=== PATIENT | male | born 1995 | race Caucasian/White ===

== ENCOUNTER 2019-10-18 06:34 | Observation (INO) | payer SELFPAY ==
[2019-10-18] VITALS (13 sets, daily range): BP systolic 123–139; BP diastolic 65–88; PULSE 67–110; RESP 15–18; TEMP 36.4–36.9; O2SAT 96–100; BMI 28.3
--- NOTE | 2019-10-18 | SCC_ITS ---
Procedure Done: Cystoscopy, RIGHT: Retrograde ureteropyelogram, ureteroscopy, stent 44.9 seconds of fluoroscopic guidance, for a cumulative dose of 4.93 mGy, was provided to Dr. Malhotra by the radiology department. C-arm images of the abdomen/pelvis were saved for the patient's permanent record. [facility]
--- NOTE | 2019-10-18 06:29 | W.ED.ABDPA2 ---
HPI - Abdominal Pain General: Chief Complaint: Abdominal Pain Stated Complaint: Right Flank Pain History of Present Illness: HPI narrative: 24-year-old male presents to the emergency room by transfer. He is here for screening prior to admission he was accepted as it direct admission from Dr. Malhotra for pyelonephritis. CT with labs that were concurrent. Patient denies any recent illness prior to this urinary symptoms and flank pain denies any respiratory symptoms or fever. MD elicited complaint: flank pain Onset (ago): hour(s) Pain Consistency: constant Location: R flank Severity: moderate Quality: stabbing Radiation: suprapubic Migration to: no migration Exacerbating factors: nothing Relieving factors: nothing Associated Symptoms: Reports GI cramping and nausea; Denies change in bowel habits, change in stool character, chills, coffee ground emesis, constipation, diarrhea, dyspepsia, dysuria, fever(s), heartburn, hematochezia, hematuria, hematemesis, fecal incontinence, loose stools, melena, syncope and vomiting Review of Systems Const: Denies: fever(s) or chills ENMT: Denies: throat pain, ear or mastoid pain, nasal discharge or nasal congestion Card: Denies: syncope Resp: Denies: dyspnea, productive cough or non-productive cough GI: Reports: nausea and GI cramping; Denies: vomiting, hematemesis, coffee ground emesis, heartburn, diarrhea, constipation, fecal incontinence, change in bowel habits, change in stool character, hematochezia or melena : Denies: dysuria or hematuria Skin/Breast: Denies: rash or pruritus PFSH ED PFSH: Social History (Updated 10/18/19 @ 06:32 by Marco Huang DO) Smoking and tobacco status: never smoked Alcohol intake: current Alcohol intake frequency: 0-2 Drinks per Day Physical Exam Const: COMMON NORMALS: no acute distress GENERAL APPEARANCE: cooperative and comfortable ORIENTATION/CONSCIOUSNESS: Yes awake, Yes oriented to person, Yes oriented to place and Yes oriented to time HENMT: COMMON NORMALS: normocephalic, atraumatic, hearing grossly normal bilaterally, external ears normal, EAC's normal, TM's normal bilaterally, Normal nasal mucous membranes and turbinates present, moist oral mucous membranes and oropharynx normal HEAD & SCALP: normocephalic and atraumatic NOSE: Normal nasal mucous membranes and turbinates present EXTERNAL EAR: Yes external ears normal EXTERNAL AUDITORY CANAL: EAC's normal TYMPANIC MEMBRANE: TM's normal bilaterally Eye: COMMON NORMALS: Equal, round and reactive pupils present, EOMs intact bilaterally, conjunctivae normal and no scleral icterus CONJUNCTIVA: Yes conjunctivae normal PUPIL: Yes Equal, round and reactive pupils present Neck/C-Spine: COMMON NORMALS: full ROM, no lymphadenopathy, supple and no JVD Lymph: LYMPHATIC: no lymphadenopathy noted and no lymphedema noted Resp: COMMON NORMALS: normal respiratory effort, No retractions, No use of accessory muscles and clear to auscultation bilaterally AUSCULTATION: clear to auscultation bilaterally Cardio: COMMON NORMALS: no JVD, regular rate, regular rhythm and No murmurs present (Cardio) RATE: regular rate RHYTHM: regular rhythm GI: COMMON NORMALS: Soft to palpation and No hepatosplenomegaly present AUSCULTATION: Yes normoactive bowel sounds PALPATION: Yes Soft to palpation, No Tenderness to palpation present (GI), No Guarding due to palpation present (GI) and Yes No hepatosplenomegaly present Extremity: COMMON NORMALS: normal to inspection, capillary refill normal, no clubbing, cyanosis or edema, no calf tenderness and no pedal edema Neuro: SENSORIUM/ORIENTATION: Yes oriented to person, Yes oriented to place and Yes oriented to time Skin: COMMON NORMALS: no rashes or lesions noted GENERAL SKIN EXAM: no rashes or lesions noted Course Vital Signs: Vital signs: Vital Signs Temperature 98.3 F 10/18/19 06:13 Pulse Rate 92 10/18/19 06:29 Respiratory Rate 17 10/18/19 06:29 Blood Pressure 137/75 10/18/19 06:29 Pulse Oximetry 96 10/18/19 06:29 Discharge Plan Discharge Patient Disposition: Admitted As Inpatient Clinical Impression: Acute pyelonephritis Condition: Stable Coding Level of Care 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
[2019-10-18] MEDS: D5-NS 0.45% + KCL 20 mEq 20 MEQ/1,000 ML BAG 125 MEQ IV (08:40)
--- NOTE | 2019-10-18 12:01 | PM.HP ---
Providers/Chief Complaint Admitting Physician: Mick Malhotra MD Chief Complaint: Right Flank Pain History of Present Illness Preston Wallace is a 24 year old male admitted after transfer from [facility] in [facility] for severe right renal colicky symptoms poorly controlled and evidence of severe hydronephrosis on the right. He reported a surgery on his urologic system he thinks his right kidney when he was a baby. Does not know any details about it. Was not familiar with UPJ obstruction or reflux terminology. The onset of the right flank pain was severe and sudden yesterday. Could not tolerate it and presented to the emergency department. They were having difficulty controlling his symptoms down there with parenteral narcotics. White count was elevated but no sign of UTI. No clinical evidence of sepsis. Due to the severity of the pain he was transferred here for admission and further evaluation. Kidney function looks good. Urinalysis showed no UTI. CT scan review: Normal left collecting system and parenchyma On the right side there is a hint of possible prior UPJ obstruction with some narrowing at the UPJ area but the ureter distal to the UPJ does look more dilated all the way down to the UVJ in comparison with the left ureter. There is a hint of some mag-ureteral stranding distally as well. I could not see a stone. Reviewed his options which would include pain medication and attempted travel back home or cystoscopy retrograde stent placement possible ureteroscopy this afternoon and if doing well discharge postop. He reviewed with his fishing buddies the options and they elected to go ahead and have a stent placed with more definitive treatment potentially at home. Procedure explained. Informed consent was obtained. Review of Systems Const: Denies: fever(s), chills or body aches Eyes: Denies: change in vision ENMT: Denies: throat pain Card: Denies: chest pain, palpitations or edema Resp: Denies: dyspnea or productive cough GI: Reports: abdominal pain; Denies: hematemesis : Reports: flank pain; Denies: urinary incontinence Musc: Denies: neck pain or back pain Skin/Breast: Denies: rash or pruritus Neuro: Denies: headache(s) or numbness in extremities Psych: Reports: anxiety (Related to the severe pain of renal colic) Endo: Denies: polyuria or tired all the time Dylan/Lymph: Denies: easy bruising or easy bleeding All/Imm: Denies: urticaria or throat swelling Medications/Allergies Home Medications Medication Instructions Recorded Confirmed Last Taken Type cyclobenzaprine 10 mg PO DAILY 10/18/19 10/18/19 10/17/19 20:00 History Allergies Allergy/AdvReac Type Severity Reaction Status Date / Time No Known Drug Allergies Allergy Unknown Verified 10/18/19 07:23 PFSH Acute PFSH: Surgical History (Updated 10/18/19 @ 14:34 by Mick Malhotra MD) History of kidney surgery No formal details available. 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 Social History Smoking and tobacco status: never smoked Alcohol intake: current Alcohol intake frequency: 0-2 Drinks per Day Vitals/I&O/Wt Last Vital Signs Temp 97.6 F 10/18/19 11:11 Pulse 86 10/18/19 11:11 Resp 18 10/18/19 11:11 BP 123/65 10/18/19 11:11 Pulse Ox 100 10/18/19 11:11 Weight last 48 hrs Weight 215 lb Physical Exam Const: COMMON NORMALS: alert and well nourished GENERAL APPEARANCE: well kempt and well developed ORIENTATION/CONSCIOUSNESS: not confused HENMT: HEAD & SCALP: normocephalic and atraumatic Neck/C-Spine: COMMON NORMALS: full ROM Resp: COMMON NORMALS: normal respiratory effort EFFORT & INSPECTION: No labored and No Actively coughing Extremity: COMMON NORMALS: no clubbing, cyanosis or edema Neuro: SENSORIUM/ORIENTATION: Yes alert Psych: COMMON NORMALS: mental status grossly normal APPEARANCE: Yes grossly normal and Yes well kempt ATTITUDE: Yes calm and Yes engaged Skin: COMMON NORMALS: no rashes or lesions noted and no jaundice A&P Assessment and plan (1) Renal colic on right side: Severe debilitating renal colicky pain on the right with hydronephrosis down to the level of the right UVJ on CT scan done at [facility] in [facility]. History of prior urologic surgery of unknown known details. He thought it was his kidney. No clear evidence of UPJ obstruction or other structural anomaly on CT scan which I personally reviewed. Complicated by being here on vacation from [place]. On a fishing trip. Reviewed options of return back home for further evaluation, cystoscopy stent placement retrograde possible ureteroscopy today with discharge postop. After carefully considering his options he chose stenting retrograde possible ureteroscopy. Status: Acute (2) Hydronephrosis of right kidney: Status: Acute Attestations Medical Necessity Statement*: Refractory pain, unexplained right hydronephrosis. Could not control pain adequately on outpatient basis. 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
--- NOTE | 2019-10-18 12:33 | PC.CHAP ---
Pastoral Care Encounter/Spiritual Assessment Type of Contact [] Declined purchasing expeditor visit [] Patient/Family/Request visit [] Outpatient visit [] Follow-up visit [] Physician referral [] Code/Alert [] Routine visit [] Staff referral [] Actively dying [xx] Patient sleeping [] Family support [] [] Out of room [] Palliative care [] [] Receiving care in room [] Pre-surgical visit [] Trauma [] Long length of stay [] ICU visit [xx] Other: Follow up needed Relational/Emotional Strength [] Patient feels connected with others/family/visitors/staff [] Distress [] Loneliness/isolation [] Abandonment Spirituality of Patient [] Person of Jud [] Attends Muslim of their Jud [] Believes in Prayer [] Reads Bible or Yazdanism materials [] There are Spiritual issues to be addressed Business Systems Advisor Interventions [] Prayer [] Active listening [] Non-anxious presence [] Spiritual/emotional support [] Crisis/trauma care [] Spiritual counseling [] Bereavement support [] Provided bereavement packet [] Provided Bible/devotional materials [] Provided toy/stuffed animal, coloring book to patient or family member [] Provided Communion [] Anointing/[place] [] Salvation [] Completed spiritual assessment [] Other: Impact on Illness or Injury [] Angry [] Fearful [] Anxious [] Often cries [] Exhaustion [] Unable to work [] Unable to attend yarsani [] Unable to walk/stand [] Unable to read [] Unable to drive [] Unable to eat/drink [] Unable to sleep [] Unable to be with family [] Patient intubated [] Other: Summary Business Systems Advisor checked patient at beginning and end of rounds. Patient remained asleep whole time. Nurse said he was sedated. Follow up needed Time spent with patient 2 minutes
--- NOTE | 2019-10-18 13:16 | ANES.PREANE2 ---
Pre-Anesthetic Assessment Pre-Anesthetic Assessment: Height/Weight: Height 1.85 m Weight 97.522 kg Temp Pulse Resp BP Pulse Ox 98.5 F 103 H 18 135/82 100 10/18/19 13:11 10/18/19 13:11 10/18/19 13:11 10/18/19 13:11 10/18/19 13:11 Proposed Procedure: Operation Date: 10/18/19 14:15 Proposed Procedures p Cystoscopy(Right) - Mick Malhotra MD s Ureteral Stent Placement(Right) - Mick Malhotra MD s Retrograde Pyelogram(Right) - Mick Malhotra MD Was Beta William taken within 24 hours: N/A Last intake: Intake Last Liquid Date 10/17/19 Last Liquid Time 21:00 Last Solid Date 10/17/19 Last Solid Time 21:00 Social: Social History: No alcohol and No tobacco Exam: Pre-Anes Outpt Exam: alert, oriented x 3, clear to auscultation bilaterally and regular rate & rhythm Airway: Submandibular: WNL Cervical ROM: WNL MP: 2 History/ROS: No significant history except as noted Pulmonary: Pulmonary: None reported CV/HEM: CV/HEM: None reported : Comments: History of stent placemnt as a child: 6 y/o Hepatic: Hepatic: None reported GI: GI: None reported Metabolic: Metabolic: None reported Musc/skel: Musc/skel: Lower Back Pain Neuropsych: Neuropsych: None reported Anesthetic Plan: ASA status: 2 Anesthesia: General Meds/Allergies Current Medications: Current Medications Generic Name Dose Route Start Last Admin Trade Name Freq PRN Reason Stop Dose Admin Potassium Chloride /Dextrose/Sod Cl 20 meq in 1,000 m ls @ 125 mls/hr 10/18/19 07:22 10/18/19 08:40 D5-Ns 0.45% + Alessandro l 20 Meq IV 125 mls/hr .Q8H JAZZMINE Administration PFSH Anesthesia PFSH: Surgical History (Updated 10/18/19 @ 12:32 by Mick Malhotra MD) History of kidney surgery Social History Smoking and tobacco status: never smoked Alcohol intake: current Alcohol intake frequency: 0-2 Drinks per Day Data Anesthesia Cardiac Studies: No Data to Display
--- NOTE | 2019-10-18 14:17 | SC_ITS ---
WS: [id number] C-ARM RADIOGRAPHS ABDOMEN; 6 IMAGES HISTORY: Intraoperative imaging during RIGHT ureteroscopy and stent placement. COMPARISON: None available. Intraoperative imaging during RIGHT ureteroscopy and stent placement. RIGHT ureteral pigtail is coile d in the RIGHT renal pelvis. SC/C-arm FL for Urology IMPRESSION: Intraoperative imaging during RIGHT ureteroscopy and stent placement.
[2019-10-18] MEDS: sodium chloride 0.9% 1,000 ML 30 ML IV (14:40)
[2019-10-18] MEDS: levofloxacin-dextrose 5 % 500 MG/100 ML PREMIX 100 MG IV (14:42)
--- NOTE | 2019-10-18 14:42 | P.OP_ITS ---
Operative Report Date of procedure: October 18, 2019 Pre-op Diagnosis: Right flank pain with hydronephrosis etiology unclear Procedure Done: Cystoscopy, RIGHT: Retrograde ureteropyelogram, ureteroscopy, stent Implants: Right ureteral stent 6 Icelandic by 30 Surgeon: Roscoe Anesthesia: General Condition: stable Disposition: PACU Brief History: Preston is a very pleasant 24-year-old white male who I evaluated for the first time today after being admitted through the emergency department for right flank pain secondary to right ureteral obstruction of unclear etiology. He was seen last night at [facility] in [facility] having been on vacation from [place] for a fishing trip. Pain was consistent with renal colic and CT scan showed moderate to severe dilation of the right collecting system including kidney and also ureter. There was a hint of narrowing in the area of the right UPJ (he had a history of probably UPJ repair as a young child) but the ureter below the UPJ was also dilated to the UVJ. Work-up revealed a white count of 17 but urinalysis showed no evidence of infection. After discussion of all the options including pain medication and follow-up locally back in [place] or cystoscopy retrograde stent possible ureteroscopy here before departing he elected the latter Procedure: After urgent evaluation examination and obtaining of informed consent he was taken to the operating suite on 10/18/2019 where general anesthesia was administered without difficulty after appropriate timeout was performed, SCDs confirmed to be functioning, preoperative antibiotics administered, beta-baldemar protocol confirmed. Prepped and draped in the usual sterile fashion in dorsolithotomy position pain careful attention to avoiding pressure points. 21 Icelandic cystoscope with 30 degree lens was introduced into urethral meatus and advanced into the bladder under videoscopy. Bladder was systematically examined. No stones were seen. An 8 Icelandic cone-tipped catheter was intubated into the right ureteral orifice for RIGHT RETROGRADE URETEROPYELOGRAM: The distal ureter had a slight area of narrowing approximately a centimeter to 1.5 cm above the UO. It did not appear to be significantly obstructing and the ureter proximal to that was not has dramatically dilated as appeared on CT scan. The area of the right UPJ though did appear to be significantly narrowed and contrast showed a very dilated pyelocalyceal system. Multiple images taken even after wire placement showed retention of contrast above the UPJ. I suspect that that was the reason for the obstructive symptoms instead of the distal ureter. I could not see any evidence of filling defects Which would cooperate the CT scan findings. Flexible tip guidewire was then advanced up the right ureter. A 6 Icelandic mini ureteroscope could not be easily advanced up the ureter over the guidewire. The cystoscope was then backloaded over the guidewire and a 15 Icelandic 4 cm balloon was then passed over the guidewire into the distal ureter where dilation was conducted. There was a slightly narrowed area that took about 10 mery of pressure to open it up. The wire was secured to the drapes as a safety wire and a 7 Icelandic offset semirigid ureteroscope was then advanced next to the guidewire up the right ureter. The area of narrowing in the distal ureter appeared to be nonspecific. There is no severe inflammatory changes consistent with the previously located stone etc. The scope was passed up to the level of the vessels and no other abnormalities were identified. The kidney was reinspected and able with the wire in place there was retention of contrast consistent with UPJ narrowing. The cystoscope was then backloaded over the guidewire and a 6 Icelandic by 30 cm double-pigtail Optimum stent was passed without string. Stent was confirmed to be draining well. Bladder was drained and the procedure was completed. He tolerated the procedure well without complications and was awakened in the operating room and returned to the recovery room in stable condition. PLANS: 1. Transfer back to the floor. After recovered he can be discharged. He will need to bring home the CD that has the CT scan from [facility], copy of their report, copies of my H&P operative report and discharge summary.
[2019-10-18] MEDS: iohexol 300 mg/mL 50 mL Btl (OR ONLY) XX (15:10)
--- NOTE | 2019-10-18 15:38 | P.DS_ITS ---
Discharge Providers Date of Admission: 10/18/19 06:35 Date of Discharge: October 18, 2019 Attending Provider at Admission: Mick Malhotra MD Attending Provider at Discharge: Mick Malhotra MD Diagnoses at Discharge Discharge Diagnosis (1) Renal colic on right side: Status: Acute (2) Hydronephrosis of right kidney: Status: Acute Problem details: Ultimately findings consistent with right UPJ obstruction, secondary. Remote repair when he was a . Some ureteral dilation below the UPJ but retrograde showed no significant obstructive changes. Ureteroscopy confirmed no stone. Reason for Visit Reason for Visit: Right Flank Pain Hospital Course Discharge Summary: He was admitted as a direct transfer from [facility] in [facility] for severe right renal colicky symptoms, leuko cytosis, but no evidence of urinary tract infection. Pain was typical for obstructive pain and CT scan done at that hospital demonstrated moderate to severe right hydroureteronephrosis with some narrowing at the UPJ but some dilation below that as well down to the UVJ. He was actually in this area on a vacation from [place]. Was going to do some trout fishing. When I first evaluated him after admission he was feeling better but was still having some pain. He was thinking about possibly just going home for further evaluation and treatment more locally but was offered a stent placement which would help reduce the risk of having refractory pain on his trip home and also give him the possibility of being able to continue his fishing trip. Ultimately he chose having a stent placed and we reviewed ureteroscopy to look at the distal ureter to see if there is any evidence of a stone or obstruction. On the afternoon of 10/18/2019 he was taken to the operating suite. Retrograde pyelogram showed findings more consistent with a right UPJ obstruction. There was some slight narrowing in the right distal ureter and ureteroscopy was done but showed no evidence of stricture. A 6 Liberian by 30 cm ureteral stent was left indwelling and plans were made for him to follow-up locally near his home in [place] near [place]. He was discharged after appropriate recovery from the hospital. Was given a prescription for Percocet and Septra. Physical Exam Const: COMMON NORMALS: no acute distress, alert and well nourished GENERAL APPEARANCE: well kempt and well developed ORIENTATION/CONSCIOUSNESS: not conf used Resp: COMMON NORMALS: normal respiratory effort EFFORT & INSPECTION: No labored and No Actively coughing Extremity: COMMON NORMALS: no clubbing, cyanosis or edema Neuro: SENSORIUM/ORIENTATION: Yes alert Psych: COMMON NORMALS: mental status grossly normal APPEARANCE: Yes grossly normal and Yes well kempt ATTITUDE: Yes calm and Yes engaged Skin: COMMON NORMALS: no rashes or lesions noted and no jaundice GENERAL SKIN EXAM: no rashes or lesions noted Discharge Data Data Completed and Pending: Pending at discharge Category Date Time Status C-arm Fluoroscopy 81275 Routine Exams 10/18/19 14:17 Taken Basic Metabolic P javad AM LABS Lab 10/19/19 04:00 Ordered Complete Blood Co unt w/Auto AM LABS Lab 10/19/19 04:00 Ordered Vitals: Last Vital Signs Temp 98.5 F 10/18/19 13:11 Pulse 103 H 10/18/19 13:11 Resp 18 10/18/19 13:11 BP 135/82 10/18/19 13:11 Pulse Ox 100 10/18/19 13:11 Discharge Plan Discharge Patient Disposition: Home Condition: Stable Prescriptions: New Percocet 5-325 mg tablet 1 tab PO TID PRN (Reason: pain) Qty: 10 RF: 0 sulfamethoxazole-trimethoprim 800-160 mg tablet 1 tab PO BID 7 Days Qty: 14 RF: 0 Continued cyclobenzaprine 10 mg tablet 10 mg PO DAILY RF: 0 Discharge Orders: Discharge Order (Routine); Ordered 10/18/19 Ordered By: Mick Malhotra Referrals: Mick Malhotra MD [Physician] - (Need to schedule follow-up with urology near his home town in [place]. Please bring the CD that has your CT scan report from [facility] in [facility], copies of the report of the CT scan, and copies of the information gathered at [facility] in [facility]. ) Discharge Diet: Usual diet Discharge Activity: Increase activity as tolerated Patient Instructions: Sulfamethoxazole/Trimethoprim (By mouth), Oxycodone/Acetaminophen (By mouth), Cystoscopy (DC), Ureteral Stent Placement (DC) Activity Restrictions/Additional Instructions: 1. Intraoperative findings showed a mild distal ureteral narrowing but did not appear to be the source of the obstruction seen on CT scan. 2. It appears that the area of most significant narrowing in the ureter was close to the kidney (the UPJ) likely where your surgery was done when you were a child. 3. Because of this it is likely that additional work will be necessary to relieve this blockage. 4. A stent was left indwelling in your right ureter and it will eventually need to come out. This is very important. A stent that is not removed appropriately will eventually become calcified and almost impossible to remove. The urologist to follow up with we will know all about that and make arrangements in coordination with treating the narrowing of your right ureter (UPJ) 5. Please call if you have any concerns or questions. 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
--- NOTE | 2019-10-19 08:32 | ANE.PACU2 ---
Inpatient post-anesthesia follow up: Airway intact: Yes Vital signs: Temperature 98.4 F Pulse Rate [Left] 96 Pulse Rate 89 Respiratory Rate 16 Blood Pressure [Le ft Arm] 136/81 Blood Pressure 126/79 Pulse Oximetry 97 Oxygen Delivery Me thod Room Air Oxygen Flow Rate Fraction of Inspir ed Oxygen Hydration adequate: Yes Nausea and vomiting: No Pain level: 1 Mental status: Baseline
== END 2019-10-18 17:00 | disposition home or self-care (01) ==
LOC: ER 07:07 → MEDSURG 09:50
PROVIDERS: Admitting Provider Urology; Visit Provider Urology
PROC: 0TJB8ZZ Inspection of Bladder, Via Natural or Artificial Opening Endoscopic (ICD-10-PCS; CPT 52000; principal; 2019-10-18 14:15)
PROC: (CPT 50605; 2019-10-18 14:15)
PROC: (CPT 74420; 2019-10-18 14:15)
DX: N13.1 Hydronephrosis with ureteral stricture, not elsewhere classified (principal); N23 Unspecified renal colic
CPT/HCPCS: 52005; 52332; 12345; 76000; 96365; 99283; 99285; C1725; C2625; G0378; J1956; J2405; J2704; J3010; J3490; J7030